=== PATIENT | female | born 1985 | race Caucasian/White ===

== ENCOUNTER 2021-03-10 10:26 | Emergency (ER) | payer OTHER ==
[2021-03-10 10:31] VITALS: RESP 16
[2021-03-10] MEDS ORDERED: diphenhydrAMINE 50 MG/ML 1 ML VIAL IVP STA (10:36)
[2021-03-10] MEDS ORDERED: ONDANSETRON 4 MG/2 ML VIAL IVP STA (10:36)
[2021-03-10] MEDS ORDERED: SODIUM CHLORIDE 0.9% 1,000 ML IV STA (10:36)
[2021-03-10] MEDS ORDERED: KETOROLAC 15 MG/ML 1 ML VIAL IVP STA (10:36)
--- NOTE | 2021-03-10 10:40 | ED ---
General Adult HPI - General Chief complaint: Neck Pain/Injury Stated complaint: Back Pain Time Seen by Provider: 03/10/21 10:32 Source: patient, family, RN notes reviewed Mode of arrival: wheelchair Limitations: no limitations - History of Present Illness Initial comments: Patient is a 35-year-old female that presents to emergency department complaining of right flank pain that acutely started earlier today. She notes that she has never had a history of kidney stones kidney infections. She did note that her mom did have kidney failure and passed a renal failure. She notes that she only drinks approximately 20 ounces of water per day as she is busy chasing kids around at home. She was well-appearing while sitting up in bed during exam and interview. She was mildly emotionally distressed and she did note that her pain is a proximal 6 out of 10 currently and she did try to take some Motrin at home prior to coming in. She denied any chest pain shortness of breath headache nausea vomiting diarrhea constipation fever fatigue chills hematuria. - Related Data Home Medications Medication Instructions Recorded Confirmed Ergocalciferol (Vitamin D2) 50 mcg PO DAILY 03/10/21 03/10/21 [Vitamin D2 (2000 Iu)] Levothyroxine Sodium [Synthroid] 88 mcg PO DAILY 03/10/21 03/10/21 Loratadine [Claritin] 10 mg PO DAILY 03/10/21 03/10/21 Tranexamic Acid 650 mg PO DIRECTED 03/10/21 03/10/21 buPROPion [Wellbutrin] 100 mg PO DAILY 03/10/21 03/10/21 Allergies Allergy/AdvReac Type Severity Reaction Status Date / Time latex Allergy Rash/Hives Verified 03/10/21 10:53 adhesive tape AdvReac Rash/Hives Verified 03/10/21 10:53 Review of Systems ROS Statement: Those systems with pertinent positive or pertinent negative responses have been documented in the HPI. ROS Other: All systems not noted in ROS Statement are negative. Past Medical History Past Medical History: No Reported History, Asthma History of Any Multi-Drug Resistant Organisms: None Reported Past Surgical History: Section Additional Past Surgical History / Comment(s): umbilical hernia repair Past Psychological History: No Psychological Hx Reported Smoking Status: Never smoker Past Alcohol Use History: Occasional Past Drug Use History: None Reported General Exam Limitations: no limitations General appearance: alert, in no apparent distress Head exam: Present: atraumatic, normocephalic, normal inspection Eye exam: Present: normal appearance, PERRL, EOMI. Absent: scleral icterus, conjunctival injection, periorbital swelling Neck exam: Present: normal inspection. Absent: tenderness, meningismus, lymphadenopathy Respiratory exam: Present: normal lung sounds bilaterally. Absent: respiratory distress, wheezes, rales, rhonchi, stridor Cardiovascular Exam: Present: regular rate, normal rhythm, normal heart sounds. Absent: systolic murmur, diastolic murmur, rubs, gallop, clicks GI/Abdominal exam: Present: soft, normal bowel sounds. Absent: distended, tenderness, guarding, rebound, rigid Extremities exam: Present: normal inspection, full ROM, normal capillary refill. Absent: tenderness, pedal edema, joint swelling, calf tenderness Back exam: Present: normal inspection, CVA tenderness (R) Neurological exam: Present: alert, oriented X3, CN II-XII intact Psychiatric exam: Present: normal affect, normal mood Skin exam: Present: warm, dry, intact, normal color. Absent: rash Course Vital Signs 03/10/21 10:27 Temperature 97.4 F L Pulse Rate 84 Respiratory 16 Rate Blood Pressure 144/85 O2 Sat by Pulse 100 Oximetry Medical Decision Making - Medical Decision Making 35-year-old female complaining of right flank pain. Labs, 1 L normal saline, 15 mg of Toradol, 4 mg of Zofran, 25 mg of Benadryl, CT of the abdomen and pelvis without contrast ordered. Labs: Large amounts of red blood cells and urine, rest of labs unremarkable. Patient just finished her menstrual cycle yesterday. CT was negative for any kidney stones but did show possible acute colitis. Case discussed with Dr. Barrett, Patient can discharge home and follow-up with primary care. - Lab Data Result diagrams: 03/10/21 10:51 03/10/21 10:51 Lab Results 03/10/21 03/10/21 03/10/21 Range/Units 10:51 10:51 10:51 WBC 6.4 (3.8-10.6) k/uL RBC 4.72 (3.80-5.40) m/uL Hgb 12.3 (11.4-16.0) gm/dL Hct 39.1 (34.0-46.0) % MCV 82.8 (80.0-100.0) fL MCH 26.0 (25.0-35.0) pg MCHC 31.3 (31.0-37.0) g/dL RDW 15.5 (11.5-15.5) % Plt Count 184 (150-450) k/uL MPV 10.0 Neutrophils % 65 % Lymphocytes % 28 % Monocytes % 4 % Eosinophils % 1 % Basophils % 1 % Neutrophils # 4.2 (1.3-7.7) k/uL Lymphocytes # 1.8 (1.0-4.8) k/uL Monocytes # 0.2 (0-1.0) k/uL Eosinophils # 0.1 (0-0.7) k/uL Basophils # 0.0 (0-0.2) k/uL Hypochromasia Slight Sodium (137-145) mmol/L Potassium (3.5-5.1) mmol/L Chloride (98-107) mmol/L Carbon Dioxide (22-30) mmol/L Anion Gap mmol/L BUN (7-17) mg/dL Creatinine (0.52-1.04) mg/dL Est GFR (CKD-EPI)AfAm (>60 ml/min/1.73 sqM) Est GFR (CKD-EPI)NonAf (>60 ml/min/1.73 sqM) Glucose (74-99) mg/dL Calcium (8.4-10.2) mg/dL Total Bilirubin (0.2-1.3) mg/dL AST (14-36) U/L ALT (4-34) U/L Alkaline Phosphatase (38-126) U/L Total Protein (6.3-8.2) g/dL Albumin (3.5-5.0) g/dL Amylase (30-110) U/L Lipase (23-300) U/L Urine Color Yellow Urine Appearance Clear (Clear) Urine pH 7.0 (5.0-8.0) Ur Specific [place] 1.013 (1.001-1.035) Urine Protein Negative (Negative) Urine Glucose (UA) Negative (Negative) Urine Ketones Negative (Negative) Urine Blood Large H (Negative) Urine Nitrite Negative (Negative) Urine Bilirubin Negative (Negative) Urine Urobilinogen <2.0 (<2.0) mg/dL Ur Leukocyte Esterase Negative (Negative) Urine RBC >182 H (0-5) /hpf Urine WBC 1 (0-5) /hpf Ur Squamous Epith Cells 3 (0-4) /hpf Hyaline Casts 1 (0-2) /lpf Urine Mucus Rare H (None) /hpf Urine HCG, Qual Not Detected (Not Detectd) 03/10/21 Range/Units 10:51 WBC (3.8-10.6) k/uL RBC (3.80-5.40) m/uL Hgb (11.4-16.0) gm/dL Hct (34.0-46.0) % MCV (80.0-100.0) fL MCH (25.0-35.0) pg MCHC (31.0-37.0) g/dL RDW (11.5-15.5) % Plt Count (150-450) k/uL MPV Neutrophils % % Lymphocytes % % Monocytes % % Eosinophils % % Basophils % % Neutrophils # (1.3-7.7) k/uL Lymphocytes # (1.0-4.8) k/uL Monocytes # (0-1.0) k/uL Eosinophils # (0-0.7) k/uL Basophils # (0-0.2) k/uL Hypochromasia Sodium 140 (137-145) mmol/L Potassium 4.2 (3.5-5.1) mmol/L Chloride 106 (98-107) mmol/L Carbon Dioxide 26 (22-30) mmol/L Anion Gap 8 mmol/L BUN 13 (7-17) mg/dL Creatinine 0.66 (0.52-1.04) mg/dL Est GFR (CKD-EPI)AfAm >90 (>60 ml/min/1.73 sqM) Est GFR (CKD-EPI)NonAf >90 (>60 ml/min/1.73 sqM) Glucose 102 H (74-99) mg/dL Calcium 9.5 (8.4-10.2) mg/dL Total Bilirubin 0.4 (0.2-1.3) mg/dL AST 19 (14-36) U/L ALT 13 (4-34) U/L Alkaline Phosphatase 127 H (38-126) U/L Total Protein 7.1 (6.3-8.2) g/dL Albumin 4.2 (3.5-5.0) g/dL Amylase 67 (30-110) U/L Lipase 116 (23-300) U/L Urine Color Urine Appearance (Clear) Urine pH (5.0-8.0) Ur Specific [place] (1.001-1.035) Urine Protein (Negative) Urine Glucose (UA) (Negative) Urine Ketones (Negative) Urine Blood (Negative) Urine Nitrite (Negative) Urine Bilirubin (Negative) Urine Urobilinogen (<2.0) mg/dL Ur Leukocyte Esterase (Negative) Urine RBC (0-5) /hpf Urine WBC (0-5) /hpf Ur Squamous Epith Cells (0-4) /hpf Hyaline Casts (0-2) /lpf Urine Mucus (None) /hpf Urine HCG, Qual (Not Detectd) - Radiology Data Radiology results: report reviewed, image reviewed CT of the abdomen and pelvis: Focal mild to moderate uncomplicated acute colitis left lower quadrant near junction of left and sigmoid colon possibly on basis of diverticulitis do no distinct diverticula identified. No free air. No well- formed fluid collection or drainable abscess noted. Disposition Clinical Impression: Colitis, Right flank pain Disposition: HOME SELF-CARE Condition: Stable Instructions (If sedation given, give patient instructions): Colitis (ED) Additional Instructions: Please return to the Emergency Department if symptoms worsen or any other concerns. Follow-up primary care in 3-5 days. Eat a bland diet increase oral fluids to give bowel rest. Can take [id number] anti-inflammatories for pain control. Is patient prescribed a controlled substance at d/c from ED?: No Referrals: Geni Sahu MD [Primary Care Provider] - 1-2 days Time of Disposition: 12:22
[2021-03-10 11:09] LABS: Basophils % (A) 1 %; Eosinophils # (A) 0.1 k/uL (0-0.7); Eosinophils % (A) 1 %; HCT 39.1 % (34.0-46.0); HGB 12.3 gm/dL (11.4-16.0); Hypochromasia Slight; Lymphocytes # (A) 1.8 k/uL (1.0-4.8); Lymphocytes % (A) 28 %; MCHC 31.3 g/dL (31.0-37.0); MCV 82.8 fL (80.0-100.0); Monocytes # (A) 0.2 k/uL (0-1.0); Monocytes % (A) 4 %; Neutrophils # (A) 4.2 k/uL (1.3-7.7); Neutrophils % (A) 65 %; Platelet Count 184 k/uL (150-450); RBC 4.72 m/uL (3.80-5.40); RDW 15.5 % (11.5-15.5); WBC 6.4 k/uL (3.8-10.6)
[2021-03-10 11:18] LABS: Appearance,Urine Clear (Clear); Bilirubin,Urine Negative (Negative); Blood,Urine Large (Negative); Color,Urine Yellow; Glucose,Urine (UA) Negative (Negative); Hyaline Casts,Urine 1 /lpf (0-2); Ketones,Urine Negative (Negative); Leukocyte Esterase,Urine Negative (Negative); Mucus,Urine Rare /hpf; Nitrite,Urine Negative (Negative); Protein,Urine Negative (Negative); RBC,Urine >182 /hpf (0-5); Specific Gravity,Urine 1.013 (1.001-1.035); Squamous Epithelial Cell,Urine 3 /hpf (0-4); Urobilinogen,Urine <2.0 mg/dL (<2.0); WBC,Urine 1 /hpf (0-5)
[2021-03-10 11:21] LABS: ALT 13 U/L (4-34); AST 19 U/L (14-36); African American GFR (CKD) >90 (>60 ml/min/1.73 sqM); Albumin 4.2 g/dL (3.5-5.0); Alkaline Phosphatase 127 U/L (38-126); Amylase 67 U/L (30-110); Anion Gap 8 mmol/L; Blood Urea Nitrogen 13 mg/dL (7-17); Calcium 9.5 mg/dL (8.4-10.2); Carbon Dioxide 26 mmol/L (22-30); Chloride 106 mmol/L (98-107); Glucose 102 mg/dL (74-99); Lipase 116 U/L (23-300); Non-African American GFR(CKD) >90 (>60 ml/min/1.73 sqM); Potassium 4.2 mmol/L (3.5-5.1); Sodium 140 mmol/L (137-145); Total Bilirubin 0.4 mg/dL (0.2-1.3); Total Protein 7.1 g/dL (6.3-8.2)
--- NOTE | 2021-03-10 11:59 | CT ---
EXAMINATION TYPE: CT abdomen pelvis wo con DATE OF EXAM: 03/10/2021 HISTORY: Flank and abdominal pain with hematuria. CT DLP: 823.1 mGycm. Automated Exposure Control for Dose Reduction was Utilized. TECHNIQUE: CT scan of the abdomen and pelvis is performed without oral or IV contrast. COMPARISON: NONE FINDINGS: Within the limitations of a non-contrast study, the following observations are made. LUNG BASES: No significant abnormality is appreciated. LIVER/GB: Liver upper limits of normal in size. PANCREAS: No significant abnormality is seen. SPLEEN: Spleen also upper limits of normal to mildly enlarged at 13.4 cm long axis axial image 38. ADRENALS: No significant abnormality is seen. KIDNEYS: No renal stones or hydronephrosis seen bilaterally. BOWEL: Slightly suboptimal evaluation bowel without enteric contrast. Stomach somewhat poorly distend ed. No suspicious small or large bowel dilatation. [id number] ill-defined fluid and fat strandi ng left lower quadrant distal transverse colon. Poor visualization of distinct diverticula at this le yonatan. No free air. No well-formed fluid collection or abscess. GENITAL ORGANS: Anteverted uterus somewhat prominent with lobulated contour towards the fundus. Canno t exclude underlying fibroids. Difficult to differentiate ovaries from adjacent bowel loops. No adnex al masses. LYMPH NODES: No greater than 1cm abdominal or pelvic lymph nodes are appreciated. OSSEOUS STRUCTURES: Bilateral pars defect L5 level without spondylolisthesis. Mild to moderate disc s pace narrowing L4-L5 level. OTHER: No significant additional abnormality is seen. IMPRESSION: Focal mild to moderate uncomplicated acute colitis left lower quadrant near junction of l eft and sigmoid colon possibly on basis of diverticulitis though no distinct diverticula identified. No free air. No well-formed fluid collection or drainable abscess noted.
[2021-03-10 12:50] VITALS: BP 148/88; PULSE 71; TEMP 98
== END 2021-03-10 12:48 | disposition home or self-care (01) ==
LOC: EC 10:26
DX: K52.9 Noninfective gastroenteritis and colitis, unspecified (principal); J45.909 Unspecified asthma, uncomplicated
CPT/HCPCS: 36415; 80053; 82150; 83690; 85025; 81001; 81025; 74176; 99284; 96374; 96375 ×2; 96361; J1200; J2405; J1885